=== PATIENT | male | born 2000 | race Caucasian/White ===

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

== ENCOUNTER → 2021-02-08 11:56 | Outpatient (CLI) | payer BC, SELFPAY ==
[2021-02-08 13:50] LABS: Adenovirus,PCR Not Detected (NotDetected); Bordetella Pertussis Not Detected (NotDetected); Chlamydophila Pneumoniae, PCR Not Detected (NotDetected); Coronavirus 19, PCR Not Detected (NotDetected); Coronavirus 229E Not Detected (NotDetected); Coronavirus NL63 Not Detected (NotDetected); Coronavirus OC43 Not Detected (NotDetected); Coronovirus HKU1,PCR Not Detected (NotDetected); Influenza A, PCR Not Detected (NotDetected); Influenza AH1, 2009 Not Detected (NotDetected); Influenza AH1, PCR Not Detected (NotDetected); Influenza AH3,PCR Not Detected (NotDetected); Influenza B, PCR Not Detected (NotDetected); Mycoplasma Pneumoniae, PCR Not Detected (NotDetected); Parainfluenza 1, PCR Not Detected (NotDetected); Parainfluenza 2, PCR Not Detected (NotDetected); Parainfluenza 3, PCR Not Detected (NotDetected); Parainfluenza 4, PCR Not Detected (NotDetected); Respiratory Syncytial Virus Not Detected (NotDetected); Rhinovirus/Enterovirus Not Detected (NotDetected)
[2021-02-08 14:03] LABS: Basophils % 0.7 % (0.1-2.0); Eosinophils # 0.1 K/mm3 (0.0-0.4); Eosinophils % 1.4 % (0.1-12.0); Hematocrit 47.7 % (42.0-52.0); Hemoglobin 16.6 g/dL (14.1-18.0); Lymphocytes # 2.3 K/mm3 (0.7-4.5); Lymphocytes % 38.6 % (10-50); Mean Corpuscular HGB Conc 34.9 g/dL (31.8-35.4); Mean Corpuscular Hemoglobin 27.3 pg (27.0-31.2); Mean Corpuscular Volume 78.1 fl (80-94); Mean Platelet Volume 8.2 fl (7.4-10.4); Monocytes # 0.5 K/mm3 (0.1-1.0); Monocytes % 7.8 % (1.7-9.3); Neutrophils % 51.6 % (37.0-80.0); Platelet Count 161 K/mm3 (142-424); Red Cell Distribution Width 13.2 % (11.5-17.5); White Blood Count 5.9 K/mm3 (4.5-13.0)
[2021-02-08 15:24] LABS: Strep Scrn Group A (Rapid) Negative (Negative)
[2021-02-08 19:33] LABS: Human Metapneumovirus Detected (NotDetected)
== END ==
PROVIDERS: PCP Family Medicine; Visit Provider Physician Assistant
DX: Z20.822 Contact with and (suspected) exposure to COVID-19 (principal); J02.9 Acute pharyngitis, unspecified; B97.81 Human metapneumovirus as the cause of diseases classified elsewhere
CPT/HCPCS: 36415; 85025; 87430; 87581; 87632; 87798; C9803; U0003; U0005

== ENCOUNTER → 2021-02-26 12:10 | Outpatient (CLI) | payer BC, SELFPAY | PROVIDERS: PCP Family Medicine; Visit Provider Nurse Practitioner | DX: U07.1 COVID-19 (principal) | CPT/HCPCS: C9803; U0003; U0005 ==

== ENCOUNTER → 2021-07-18 15:36 | Outpatient (CLI) | payer BC, SELFPAY ==
[2021-07-18 16:53] LABS: Basophils # 0.2 K/mm3 (0-0.2); Basophils % 2.1 % (0.1-2.0); Eosinophils # 0.2 K/mm3 (0.0-0.4); Hematocrit 47.2 % (42.0-52.0); Hemoglobin 16.4 g/dL (14.1-18.0); Lymphocytes # 1.3 K/mm3 (0.7-4.5); Lymphocytes % 12.4 % (10-50); Mean Corpuscular HGB Conc 34.7 g/dL (31.8-35.4); Mean Corpuscular Hemoglobin 28.2 pg (27.0-31.2); Mean Corpuscular Volume 81.3 fl (80-94); Mean Platelet Volume 9.7 fl (7.4-10.4); Monocytes # 0.3 K/mm3 (0.1-1.0); Monocytes % 3.1 % (1.7-9.3); Neutrophils # 8.2 K/mm3 (1.8-7.8); Neutrophils % 80.4 % (37.0-80.0); Platelet Count 201 K/mm3 (142-424); Red Blood Count 5.81 M/mm3 (4.60-6.20); Red Cell Distribution Width 13.1 % (11.5-17.5); White Blood Count 10.2 K/mm3 (4.5-13.0)
[2021-07-18 18:31] LABS: Strep Scrn Group A (Rapid) Negative (Negative)
== END ==
PROVIDERS: Nurse Practitioner Family; PCP Family Medicine; Visit Provider Family Medicine
DX: Z20.822 Contact with and (suspected) exposure to COVID-19 (principal)
CPT/HCPCS: 36415; 85025; 87275; 87276; 87430; C9803; U0003; U0005

== ENCOUNTER → 2021-11-20 10:13 | Outpatient (CLI) | payer BC, SELFPAY ==
[2021-11-20 10:53] LABS: Adenovirus,PCR Not Detected (NotDetected); Bordetella Pertussis Not Detected (NotDetected); Chlamydophila Pneumoniae, PCR Not Detected (NotDetected); Coronavirus 19, PCR Not Detected (NotDetected); Coronavirus 229E Not Detected (NotDetected); Coronavirus NL63 Not Detected (NotDetected); Coronavirus OC43 Not Detected (NotDetected); Coronovirus HKU1,PCR Not Detected (NotDetected); Human Metapneumovirus Not Detected (NotDetected); Influenza A, PCR Not Detected (NotDetected); Influenza AH1, 2009 Not Detected (NotDetected); Influenza AH1, PCR Not Detected (NotDetected); Influenza AH3,PCR Not Detected (NotDetected); Influenza B, PCR Not Detected (NotDetected); Mycoplasma Pneumoniae, PCR Not Detected (NotDetected); Parainfluenza 1, PCR Not Detected (NotDetected); Parainfluenza 2, PCR Not Detected (NotDetected); Parainfluenza 3, PCR Not Detected (NotDetected); Parainfluenza 4, PCR Not Detected (NotDetected); Respiratory Syncytial Virus Not Detected (NotDetected)
[2021-11-20 10:59] LABS: Basophils # 0.2 K/mm3 (0-0.2); Basophils % 2.2 % (0.1-2.0); Eosinophils # 0.1 K/mm3 (0.0-0.4); Eosinophils % 0.9 % (0.1-12.0); Hematocrit 50.7 % (42.0-52.0); Hemoglobin 16.8 g/dL (14.1-18.0); Lymphocytes # 2.1 K/mm3 (0.7-4.5); Lymphocytes % 22.3 % (10-50); Mean Corpuscular HGB Conc 33.2 g/dL (31.8-35.4); Mean Corpuscular Hemoglobin 27.8 pg (27.0-31.2); Mean Corpuscular Volume 83.8 fl (80-94); Mean Platelet Volume 8.1 fl (7.4-10.4); Monocytes # 0.6 K/mm3 (0.1-1.0); Monocytes % 6.1 % (1.7-9.3); Neutrophils # 6.4 K/mm3 (1.8-7.8); Neutrophils % 68.6 % (37.0-80.0); Platelet Count 173 K/mm3 (142-424); Red Blood Count 6.05 M/mm3 (4.60-6.20); Red Cell Distribution Width 13.1 % (11.5-17.5); White Blood Count 9.3 K/mm3 (4.5-13.0)
[2021-11-20 14:02] LABS: Rhinovirus/Enterovirus Detected (NotDetected)
== END ==
PROVIDERS: PCP Family Medicine; Visit Provider Family Medicine
DX: Z20.822 Contact with and (suspected) exposure to COVID-19 (principal); B34.1 Enterovirus infection, unspecified
CPT/HCPCS: 36415; 85025; 87581; 87632; 87798; C9803; U0003; U0005

== ENCOUNTER → 2022-02-21 15:53 | Outpatient (CLI) | payer BC, SELFPAY ==
[2022-02-21 16:52] LABS: Coronavirus 19, PCR Not Detected (NotDetected); Influenza A, PCR Not Detected (NotDetected); Influenza B, PCR Not Detected (NotDetected)
[2022-02-21 16:56] LABS: Basophils # 0.1 K/mm3 (0-0.2); Basophils % 1.8 % (0.1-2.0); Eosinophils # 0.1 K/mm3 (0.0-0.4); Eosinophils % 1.3 % (0.1-12.0); Hematocrit 47.7 % (42.0-52.0); Lymphocytes # 1.5 K/mm3 (0.7-4.5); Lymphocytes % 28.4 % (10-50); Mean Corpuscular HGB Conc 33.5 g/dL (31.8-35.4); Mean Corpuscular Hemoglobin 27.9 pg (27.0-31.2); Mean Corpuscular Volume 83.2 fl (80-94); Mean Platelet Volume 8.3 fl (7.4-10.4); Monocytes # 0.4 K/mm3 (0.1-1.0); Monocytes % 7.6 % (1.7-9.3); Neutrophils # 3.2 K/mm3 (1.8-7.8); Neutrophils % 60.9 % (37.0-80.0); Platelet Count 155 K/mm3 (142-424); Red Blood Count 5.73 M/mm3 (4.60-6.20); Red Cell Distribution Width 12.7 % (11.5-17.5); White Blood Count 5.2 K/mm3 (4.5-13.0)
[2022-02-21 17:01] LABS: Strep Scrn Group A (Rapid) Negative (Negative)
== END ==
PROVIDERS: PCP Family Medicine; Visit Provider Physician Assistant
DX: Z20.822 Contact with and (suspected) exposure to COVID-19 (principal)
CPT/HCPCS: 36415; 85025; 87430; C9803; U0003; U0005

== ENCOUNTER 2022-08-11 10:31 | Emergency (ER) | payer BC, SELFPAY ==
[2022-08-11 10:32] VITALS: BP 122/74; PULSE 106; RESP 18; TEMP 37.4; O2SAT 98; BMI 27.8
--- NOTE | 2022-08-11 10:58 | EXP.UTC ---
Discharge Plan Disposition Patient Disposition: Home, Self-Care Condition: Good Prescriptions Prescriptions: New amoxicillin [amoxicillin] 875 mg tablet 875 mg PO Q12H Qty: 20 0RF methylprednisolone 4 mg Tablets,Dose Pack 4 mg PO DIRECTED Qty: 21 0RF dpdtcyjvjdcnpki-johabqdca-DJ [Bromfed DM] 2-30-10 mg/5 mL Syrup 5 ml PO Q6H PRN (Reason: Cough) Qty: 240 0RF No Action montelukast 10 mg tablet PO Qty: 30 Label Comments: TAKE 1 TABLET BY MOUTH EVERY DAY amoxicillin 500 mg capsule 500 mg PO Q12H 10 Days Qty: 20 0RF Referrals Follow up/Referrals: Moises Multani MD [Primary Care Provider] - See instructions Activity Restrictions/Add. Instructions Additional Instructions/Restrictions: Drink plenty of fluids. Take tylenol or ibuprofen for pain or fever. Take the medications as directed. Follow up with your regular doctor. GO TO THE ER FOR ANY WORSENING SYMPTOMS Clinical Impressions Clinical Impression: Sinusitis, Bronchitis Instructions Patient Instructions: DI for Sinusitis, Sinusitis Discharge ED Provider: Ilia De La O [facility] General Stated complaint: cough,sore throat Time Seen by Provider: 08/11/22 10:58 History of Present Illness Provider Complaint: He c/o sore throat, ear pain, sinus congestion and nonproductive cough for the past 4 days. Related Data Home Medications Medication Instructions Recorded Confirmed montelukast 10 mg tablet PO #30 tabs 11/05/18 11/05/18 Previous Rx's Medication Instructions Recorded amoxicillin 500 mg capsule 500 mg PO Q12H sinusitis 10 days 11/05/18 #20 caps amoxicillin 875 mg tablet 875 mg PO Q12H #20 tabs 08/11/22 cxtlgwfibninsdi-owxahnxkiawriyk-CZ 5 ml PO Q6H PRN Cough #240 mL 08/11/22 2 mg-30 mg-10 mg/5 mL oral syrup (Bromfed DM) methylprednisolone 4 mg tablets in 4 mg PO DIRECTED #21 tabs 08/11/22 a dose pack Allergies Allergy/AdvReac Type Severity Reaction Status Date / Time From LORTAB Allergy Mild NA-NAUSEA Uncoded 11/05/18 19:26 [facility] Disclaimer: The information contained in this section may have been updated after the patient was seen, as this information can be updated by other users. Social History Smoking Status: Never smoker alcohol intake: never substance use type: denies use current occupational status: student Travel in the last 8 weeks: None household members: family housing: house ROS Obtained: Yes All systems reviewed & no additional complaints except as documented Constitutional Constitutional: Reports chills and Denies fever(s) Eyes Eyes: Denies eye discharge ENT Ears, Nose, Mouth, and Throat: Reports as per HPI Cardiovascular Cardiovascular: Denies chest pain Respiratory Respiratory: Denies chest congestion and Reports cough Gastrointestinal Gastrointestingal: Reports nausea; Denies abdominal pain, constipation, cramping, diarrhea or vomiting Musculoskeletal Musculoskeletal: Denies arthralgias Integumentary/Breasts Skin/Breast: Denies rash Neurologic Neurologic: Denies paresthesias Physical Exam General General appearance: alert and in no apparent distress Head Head exam: atraumatic, normocephalic and normal inspection Eye Eye exam: Present normal appearance, PERRL and EOMI ENT ENT exam: Present mucous membranes moist and normal external ear exam Expanded ENT Exam TM/Canal exam: Bilateral TM: erythema and bulging Nose exam: Absent sinus tenderness Mouth exam: Present normal external inspection; Absent drooling Teeth exam: Present normal inspection Throat exam: Present tonsillar erythema, tonsillomegaly and tonsillar exudate Neck Neck exam: Present normal inspection, full ROM and trachea midline; Absent tenderness, meningismus or lymphadenopathy Chest Chest inspection: Present normal inspection and symmetric chest wall rise; Absent tenderness Respiratory Respiratory exam: Pr
[2022-08-11 11:17] LABS: UTC Strep Screen (Rapid) Negative (Negative)
[2022-08-11 11:31] VITALS: BP 122/74; PULSE 106; RESP 18; TEMP 37.4; O2SAT 98
== END 2022-08-11 11:47 | disposition home or self-care (01) ==
PROVIDERS: Emergency Provider Nurse Practitioner Family; PCP Family Medicine
DX: J20.9 Acute bronchitis, unspecified (principal); J01.90 Acute sinusitis, unspecified; H66.93 Otitis media, unspecified, bilateral
CPT/HCPCS: 87880; 96372; 99204; 99212; G0463

== ENCOUNTER 2023-12-16 15:30 | Emergency (ER) | payer BC, SELFPAY ==
[2023-12-16 15:45] VITALS: BP 136/85; PULSE 79; RESP 20; TEMP 37; O2SAT 99; BMI 35.4
[2023-12-16] MEDS: FLU VACC TS2024-25(6MOS UP)/PF 45 MCG/0.5 ML SYRINGE IM (15:48)
[2023-12-16 15:57] VITALS: BP 136/85; PULSE 79; RESP 20; TEMP 37; O2SAT 99
== END 2023-12-16 16:00 | disposition home or self-care (01) ==
LOC: UTC 15:34
PROVIDERS: Emergency Provider Nurse Practitioner; PCP Family Medicine
DX: Z23 Encounter for immunization (principal)
CPT/HCPCS: 90471

== ENCOUNTER 2024-01-19 09:21 | Emergency (ER) | payer BC, SELFPAY ==
[2024-01-19 09:45] VITALS: BP 133/87; PULSE 112; RESP 18; TEMP 37.7; O2SAT 97; BMI 35.9
--- NOTE | 2024-01-19 09:55 | EXP.UTC ---
Discharge Plan Disposition Patient Disposition: Home, Self-Care Condition: Good Prescriptions Prescriptions: New methylprednisolone 4 mg Tablets,Dose Pack 4 mg PO DIRECTED 6 Days Qty: 21 0RF Rx Instructions: Take 1 pack as directed for 6 days crvxwipcnvuuzzw-lvmmiprwq-SQ [Bromfed DM] 2-30-10 mg/5 mL Syrup 5 ml PO Q6H PRN (Reason: Cough) Qty: 240 0RF amoxicillin-pot clavulanate 875-125 mg Tablet 1 tab PO Q12H Qty: 20 0RF No Action omeprazole 40 mg capsule,delayed release(DR/EC) 40 mg PO DAILY Patient Comments: TAKE 1 CAPSULE BY MOUTH ONCE DAILY levocetirizine 5 mg tablet 5 mg PO DAILY Patient Comments: TAKE 1 TABLET BY MOUTH ONCE DAILY IN THE EVENING FOR 90 DAYS Dulera 50-5 mcg/actuation Hfa Aerosol Inhaler 2 inh INHALATION BID Referrals Follow up/Referrals: Moises Multani MD [Primary Care Provider] - See instructions Activity Restrictions/Add. Instructions Additional Instructions/Restrictions: Drink plenty of fluids. Take tylenol or ibuprofen for pain or fever. Take the medications as directed. Follow up with your regular doctor. GO TO THE ER FOR ANY WORSENING SYMPTOMS Clinical Impressions Clinical Impression: Sinusitis, Bronchitis Instructions Patient Instructions: Sinusitis, DI for Sinusitis Print Language Print Language: Thai Discharge ED Provider: Ilia De La O [facility] General Stated complaint: congestion, cough, runny nose Mode of Arrival: Ambulatory Source of Information: Patient Limitations: No Limitations Time Seen by Provider: 01/19/24 09:55 Description of Symptoms (Recalled from Triage Doc. by RN): PATIENT C/O CONGESTION, RUNNY NOSE, AND DRY COUGH X 2 DAYS HEENT Symptoms (Recalled from RN notes): Yes Resp Symptoms (Recalled from RN notes): Yes Skin Symptoms (Recalled from RN notes): No MS Symptoms (Recalled from RN notes): No Functional Status (Recalled from RN notes): WNL Related Data Home Medications ?Medication ?Instructions ?Recorded ?Confirmed levocetirizine 5 mg tablet 5 mg PO DAILY 01/19/24 01/19/24 mometasone-formoterol HFA 50 mcg-5 2 inh inhalation BID 01/19/24 01/19/24 mcg/actuation aerosol inhaler (Dulera) omeprazole 40 mg capsule,delayed 40 mg PO DAILY 01/19/24 01/19/24 release Previous Rx's ?Medication ?Instructions ?Recorded amoxicillin 875 mg-potassium 1 tab PO Q12H #20 tabs 01/19/24 clavulanate 125 mg tablet kcnykzwnmztrlmx-ipanqfexlsuhqxb-ZN 5 ml PO Q6H PRN Cough #240 mL 01/19/24 2 mg-30 mg-10 mg/5 mL oral syrup (Bromfed DM) methylprednisolone 4 mg tablets in 4 mg PO DIRECTED 6 days #21 tabs 01/19/24 a dose pack Allergies Allergy/AdvReac Type Severity Reaction Status Date / Time acetaminophen (From Lortab) Allergy Vomiting Verified 01/19/24 09:55 hydrocodone (From Lortab) Allergy Vomiting Verified 01/19/24 09:55 Worker's Comp Is this a Worker's Comp case?: No [facility] Disclaimer: The information contained in this section may have been updated after the patient was seen, as this information can be updated by other users. Medical History (Updated 01/19/24 @ 10:31 by Ilia De La O APRN) Asthma Surgical History (Updated 01/19/24 @ 09:55 by Liane Truong RN) History of tonsillectomy History of appendectomy Social History Smoking Status: Never smoker alcohol intake: never substance use type: denies use current occupational status: student household members: family housing: house ROS Obtained: Yes All systems reviewed & no additional complaints except as documented Constitutional Constitutional: Reports poor appetite Eyes Eyes: Reports system reviewed and no additional complaints, except as documented ENT Ears, Nose, Mouth, and Throat: Reports as per HPI Cardiovascular Cardiovascular: Reports system reviewed and no additional complaints, except as documented and Denies chest pain Respiratory Respiratory: Denies shortness of breath, Reports chest congestion, Reports cough, Denies stridor and Denies wheezing Gastrointestinal Gastrointestingal: Reports system reviewed and no additional complaints, except as documented; Denies abdominal pain, diarrhea or vomiting Musculoskeletal Musculoskeletal: Reports system reviewed and no additional complaints, except as documented and Denies arthralgias Integumentary/Breasts Skin/Breast: Reports system reviewed and no additional complaints, except as documented and Denies rash Neurologic Neurologic: Denies paresthesias Allergic/Immunologic Allergic/Immunologic: Denies wheezing Physical Exam General General appearance: alert and in no apparent distress Eye Eye exam: Present normal appearance, PERRL and EOMI ENT ENT exam: Present mucous membranes moist and normal external ear exam Expanded ENT Exam External ear exam: Present normal external inspection TM/Canal exam: Bilateral TM: erythema and bulging Nose exam: Absent sinus tenderness Nasal speculum exam: Bilateral: normal Mouth exam: Present normal external inspection; Absent drooling Teeth exam: Present normal inspection Throat exam: Present tonsillar erythema and tonsillomegaly Neck Neck exam: Present normal inspection, full ROM and trachea midline; Absent tenderness, lymphadenopathy or thyromegaly Chest Chest inspection: Present normal inspection and symmetric chest wall rise; Absent tenderness or rash Respiratory Respiratory exam: Present normal lung sounds bilaterally; Absent respiratory distress, wheezes, stridor or accessory muscle use Cardiovascular Cardiovascular exam: Present regular rate, normal rhythm and normal heart sounds Abdominal Exam Abdominal exam: Present soft; Absent distention, tenderness, guarding, rebound or rigidity Extremities Exam Extremities exam: Present normal inspection, full ROM and normal capillary refill; Absent tenderness or calf tenderness Back Exam Back exam: Present normal inspection and full ROM; Absent tenderness Neurological Exam Neurological exam: Present alert and oriented X3 Psychiatric Psychiatric exam: Present normal affect and normal mood Skin Skin exam: Present warm, dry, intact and normal color Lymphatic Lymphatic Findings: no adenopathy Medical Decision Making Medical Records Medical records reviewed: No I reviewed the patient's medical records. Screening: Per USPSTF and CDC recommendations, given the prevalence of disease in our region, it is our hospital?s policy to screen for HIV and viral Hepatitis for all patients aged 18 and over and those with ongoing risk factors. Josr Inquiry Pt receiving controlled substance: No Vital Signs: 01/19/24 09:45 Temperature 99.8 F H Temperature Source Oral Pulse Rate [Left Brachial] 112 H Respiratory Rate 18 Blood Pressure [Left Arm] 133/87 Blood Pressure Mean [Left Arm] 102 Blood Pressure Source [Left Arm] Automatic Cuff Blood Pressure Position [Left Arm] Sitting 02 Sat by Pulse Oximetry 97 Oxygen Delivery Method Room Air Lab Data Lab results reviewed: Yes I reviewed the patient's lab results.
[2024-01-19 10:37] VITALS: BP 133/87; PULSE 112; RESP 18; TEMP 37.7; O2SAT 97
== END 2024-01-19 10:39 | disposition home or self-care (01) ==
PROVIDERS: Emergency Provider Nurse Practitioner Family; PCP Family Medicine
DX: J01.90 Acute sinusitis, unspecified (principal); J20.9 Acute bronchitis, unspecified; R09.81 Nasal congestion; R05.9 Cough, unspecified; R63.8 Other symptoms and signs concerning food and fluid intake
CPT/HCPCS: 99212; G0381

== ENCOUNTER 2024-02-03 07:38 | Emergency (ER) | payer BC, SELFPAY ==
[2024-02-03 07:46] VITALS: BP 141/92; PULSE 119; RESP 18; TEMP 36.8; O2SAT 98; BMI 34.9
--- NOTE | 2024-02-03 07:56 | ED_ITS ---
Discharge Plan Disposition Patient Disposition: Home, Self-Care Condition: Good Prescriptions Prescriptions: New ondansetron 4 mg tablet,disintegrating 4 mg PO Q8H PRN (Reason: nausea and vomiting) 4 Days Qty: 12 0RF xcsxbacelzbyrvg-lyvvytrdw-HW [Bromfed DM] 2-30-10 mg/5 mL syrup 5 ml PO Q6H PRN (Reason: cold symptoms) Qty: 118 0RF No Action omeprazole 40 mg capsule,delayed release(DR/EC) 40 mg PO DAILY Patient Comments: TAKE 1 CAPSULE BY MOUTH ONCE DAILY levocetirizine 5 mg tablet 5 mg PO DAILY Patient Comments: TAKE 1 TABLET BY MOUTH ONCE DAILY IN THE EVENING FOR 90 DAYS Dulera 50-5 mcg/actuation Hfa Aerosol Inhaler 2 inh INHALATION BID methylprednisolone 4 mg Tablets,Dose Pack 4 mg PO DIRECTED 6 Days Qty: 21 0RF Rx Instructions: Take 1 pack as directed for 6 days pnponfoasumught-rinzctqwe-MK [Bromfed DM] 2-30-10 mg/5 mL Syrup 5 ml PO Q6H PRN (Reason: Cough) Qty: 240 0RF amoxicillin-pot clavulanate 875-125 mg Tablet 1 tab PO Q12H Qty: 20 0RF Referrals Follow up/Referrals: Moises Multani MD [Primary Care Provider] - See instructions Activity Restrictions/Add. Instructions Additional Instructions/Restrictions: You were evaluated in the emergency department today. Please stop taking the Medrol Dosepak provided to you at home. Follow-up closely with your primary care provider. supervisor final your prescriptions at the pharmacy and take them as needed for symptoms. Take Tylenol and ibuprofen every 4-6 hours as needed for symptoms as well. Make sure you stay hydrated. Use your inhaler at home every 4-6 hours as needed for wheezing. Expect that cough may linger for several weeks after you start to feel better. Return to the emergency department for new or worsening symptoms. Clinical Impressions Clinical Impression: COVID-19 Stand Alone Forms Stand Alone Forms: Work/School Release Instructions Patient Instructions: DI for Viral Upper Respiratory Infection -- Adult, DI for COVID-19 (Suspected or Confirmed ) Print Language Print Language: [place] Island[place] Discharge ED Provider: Jenna Rocha General Adult HPI General Chief complaint: Upper Respiratory Infection Stated complaint: chest head congestion body aches Time Seen by Provider: 02/03/24 07:45 History of Present Illness HPI narrative: This patient is a 23-year-old male with history of asthma presented to the emergency department for evaluation with concern for cough, shortness of breath, lightheadedness, nausea, and vomiting in the setting of COVID-19. Patient is that he started getting sick on Friday, and his mom tested positive for COVID here on 01/31 so he took a COVID test at home, which came back positive. He states that he talked to the pharmacy who gave him a Medrol Dosepak and he also has Bromfed at home, but nothing is seeming to help. He has been using his inhaler at home. No other concerns or complaints noted at this time. Related Data Home Medications ?Medication ?Instructions ?Recorded ?Confirmed levocetirizine 5 mg tablet 5 mg PO DAILY 01/19/24 01/19/24 mometasone-formoterol HFA 50 mcg-5 2 inh inhalation BID 01/19/24 01/19/24 mcg/actuation aerosol inhaler (Dulera) omeprazole 40 mg capsule,delayed 40 mg PO DAILY 01/19/24 01/19/24 release Previous Rx's ?Medication ?Instructions ?Recorded amoxicillin 875 mg-potassium 1 tab PO Q12H #20 tabs 01/19/24 clavulanate 125 mg tablet vdlmgdawrqipnwt-fxcxbmevsldgyki-NU 5 ml PO Q6H PRN Cough #240 mL 01/19/24 2 mg-30 mg-10 mg/5 mL oral syrup (Bromfed DM) methylprednisolone 4 mg tablets in 4 mg PO DIRECTED 6 days #21 tabs 01/19/24 a dose pack fcrujftwljhwnpg-hjpfizrmjsskedx-VY 5 ml PO Q6H PRN cold symptoms #118 02/03/24 2 mg-30 mg-10 mg/5 mL oral syrup mL (Bromfed DM) ondansetron 4 mg disintegrating 4 mg PO Q8H PRN nausea and 02/03/24 tablet vomiting 4 days #12 tabs Allergies Allergy/AdvReac Type Severity Reaction Status Date / Time acetaminophen (From Lortab) Allergy Vomiting Verified 01/19/24 09:55 hydrocodone (From Lortab) Allergy Vomiting Verified 01/19/24 09:55 [facility] Disclaimer: The information contained in this section may have been updated after the lion ent was seen, as this information can be updated by other users. Medical History Asthma Surgical History History of tonsillectomy History of appendectomy Social History Smoking Status: Never smoker alcohol intake: never substance use type: denies use current occupational status: student Travel in the last 8 weeks: None household members: family housing: house Other Medical History Have you received the Flu Vaccine for this season: No Have you received the Pneumonia Vaccine: No ROS Obtained: Yes All systems reviewed & no additional complaints except as documented Physical Exam General General appearance: alert and in no apparent distress Head Head exam: atraumatic and normocephalic Eye Eye exam: Present normal appearance, PERRL and EOMI ENT ENT exam: Present normal exam, normal oropharynx, mucous membranes moist and normal external ear exam Neck Neck exam: Present normal inspection, full ROM and trachea midline; Absent tenderness Chest Chest inspection: Present normal inspection and symmetric chest wall rise; Absent tenderness Respiratory Respiratory exam: Present normal lung sounds bilaterally; Absent respiratory distress, wheezes, stridor or accessory muscle use Cardiovascular Cardiovascular exam: Present regular rate and normal rhythm Abdominal Exam Abdominal exam: Present soft; Absent distention, tenderness or guarding Extremities Exam Extremities exam: Present normal inspection, full ROM and normal capillary refill; Absent tenderness or edema Back Exam Back exam: Present normal inspection and full ROM; Absent tenderness Neurological Exam Neurological exam: Present alert, oriented X3, CN II-XII intact and normal gait; Absent motor sensory deficit Psychiatric Psychiatric exam: Present normal affect and normal mood Skin Skin exam: Present warm and dry Medical Decision Making Medical Records Medical records reviewed: Yes I reviewed the patient's medical records. Screening: Per USPSTF and CDC recommendations, given the prevalence of disease in our region, it is our hospital?s policy to screen for HIV and viral Hepatitis for all patients aged 18 and over and those with ongoing risk factors. Josr Inquiry Pt receiving controlled substance: No Vital Signs: 02/03/24 07:46 02/03/24 08:00 02/03/24 08:30 Temperature 98.3 F Temperature Source Oral Pulse Rate 111 H 87 Pulse Rate [Left] 119 H Respiratory Rate 18 Blood Pressure 155/92 H 141/78 H Blood Pressure [Right Arm] 141/92 H Blood Pressure Mean [Right Arm] 108 Blood Pressure Source [Right Arm] Automatic Cuff Blood Pressure Position [Right Arm] Sitting 02 Sat by Pulse Oximetry 98 98 100 Oxygen Delivery Method Room Air Room Air Room Air Lab Data Lab results reviewed: Yes I reviewed the patient's lab results. Orders (Tests/Meds): ED MEDICATIONS Generic Name Dose Route Start Last Admin Trade Name Freq PRN Reason Stop Dose Admin Albuterol Sulfate 2 puff 02/03/24 09:16 02/03/24 09:20 Albuterol-Hfa 90mcg/Puff Inhaler 8gm IH 02/03/24 09:17 2 puff ONCE ONE Administration Discontinued Medications Generic Name Dose Route Start Last Admin Trade Name Freq PRN Reason Stop Dose Admin Albuterol/Ipratropium 3 ml 02/03/24 07:55 02/03/24 08:18 Ipratropium/Albuterol 3 Ml Neb IH 02/03/24 07:56 3 ml ONCE ONE Administration Dexamethasone Sodium Phosphate 10 mg 02/03/24 07:53 02/03/24 08:14 Dexamethasone 4mg/Ml 1ml Vial IV 02/03/24 07:54 Not Given ONCE ONE Dexamethasone Sodium Phosphate 10 mg 02/03/24 08:13 02/03/24 08:16 Dexamethasone 4mg/Ml 1ml Vial IM 02/03/24 08:14 10 mg ONCE ONE Administration Ondansetron HCl 4 mg 02/03/24 07:53 02/03/24 08:17 Ondansetron 4mg Odt SL 02/03/24 07:54 4 mg ONCE ONE Administration Medical Decision Narrative: In summary, this patient is a 23-year-old male presenting to the Emergency Department for evaluation of shortness of breath, cough, nausea, vomiting, in the setting of COVID-19. Differential diagnoses considered include but are not limited to COVID-19, pneumonia, asthma exacerbation, respiratory failure. Ruling out the most morbid conditions drove assessment. It should be noted patient's history includes asthma which may or may not be at goal therapy. This complicates all aspects of care by increasing patient's risk for morbidity. Patient has had 3 days of symptoms and is known positive for COVID-19. On exam, the patient is well-appearing with normal vital signs on cardiac telemetry with exception of very mild sinus tachycardia in the setting of viral infection. His heart rate was in the low 100s on assessment. No increased work of breathing. Lungs are clear to auscultation bilaterally. He was given a DuoNeb to see if he gets good symptomatic improvement as well as IM dexamethasone given history of asthma. He was given oral Zofran given the nausea and vomiting. I considered obtaining labs and imaging, however based on reassuring exam and history, I do not feel that this is indicated as it would likely not roving changer. On reassessment, he is feeling better and exam remains reassuring. At this time, I feel that he is appropriate for discharge home with prescriptions for Zofran and Bromfed as well as instruction for supportive management. He was given a new albuterol rescue inhaler here at his request. Strict return precautions were given as well as instructions for close follow-up. He was discharged after all questions were answered. Critical Care Critical Care Time Critical Care Time: No
[2024-02-03 08:00] VITALS: BP 155/92; PULSE 111; O2SAT 98
[2024-02-03] MEDS: DEXAMETHASONE 4MG/ML 1ML VIAL 10 MG IM (08:16)
[2024-02-03] MEDS: ONDANSETRON 4MG ODT 4 MG SL (08:17)
[2024-02-03] MEDS: IPRATROPIUM/ALBUTEROL 3 ML NEB IH (08:18)
[2024-02-03 08:30] VITALS: BP 141/78; PULSE 87; O2SAT 100
[2024-02-03] MEDS: ALBUTEROL-HFA 90MCG/PUFF INHALER 8GM 2 PUFF IH (09:20)
[2024-02-03 09:23] VITALS: BP 148/101; PULSE 97; RESP 17; TEMP 36.8; O2SAT 98
== END 2024-02-03 09:24 | disposition home or self-care (01) ==
PROVIDERS: Emergency Provider Emergency Medicine; PCP Family Medicine
DX: U07.1 COVID-19 (principal); R06.02 Shortness of breath; R05.9 Cough, unspecified; R42 Dizziness and giddiness; R11.2 Nausea with vomiting, unspecified; M79.10 Myalgia, unspecified site; R09.89 Other specified symptoms and signs involving the circulatory and respiratory systems
CPT/HCPCS: 96372; 99283; J1100; J7620; Q0162